=== PATIENT | female | born 1980 | race Caucasian/White ===

== ENCOUNTER 2017-11-28 02:09 | Emergency (ER) | payer MEDICAID ==
[~2017-11-28] VITALS: Ht 165.1 cm; Wt 62.1 kg
[2017-11-28 02:45] VITALS: BP 151/87
[2017-11-28] MEDS ORDERED: Albuterol ud Inhalation HHN ONE (02:45)
[2017-11-28] MEDS ORDERED: GUAIFENESIN-CO118 M1 ORAL (02:47)
[2017-11-28] MEDS ORDERED: ALBUTEROL SULF8.5 GM INH (02:47)
--- NOTE | 2017-11-28 02:48 | Emergency Room Report ---
History of Present Illness General Chief Complaint: Upper Respiratory Illness Source: Patient Present Illness HPI Is a 37-year-old female with history of diabetes. She presents with chief complaint of cough and congestion for last for 5 days. The last 3 days she been complaining of unable to sleep because of the coughing and tightness in her chest. Coughing is productive of phlegm. Subjective fever chills been no nausea or vomiting. No diarrhea. Does have congestion and specks of blood when she blows her nose. Allergies: Coded Allergies: No Known Allergies (Unverified , 11/28/17) Patient History Past Medical History: see triage record, old chart reviewed, DM Past Surgical History: none Pertinent Family History: none Social History: Denies: smoking Now: No Immunizations: other Reviewed Nursing Documentation: PMH: Agreed, PSxH: Agreed Nursing Documentation-PMH Hx Diabetes: Yes Review of Systems Eye: Denies: eye pain, blurred vision ENT: Reports: nose congestion, Denies: ear pain, throat swelling Respiratory: Reports: cough, shortness of breath Cardiovascular: Denies: chest pain, palpitations Gastrointestinal: Denies: abdominal pain, diarrhea, nausea, vomiting Musculoskeletal: Denies: back pain, joint pain Skin: Denies: rash Neurological: Denies: headache, numbness Endocrine: Denies: increased thirst, increased urine Hematologic/Lymphatic: Denies: easy bruising All Other Systems: negative except mentioned in HPI Physical Exam Vital Signs Date Time Temp Pulse Resp B/P (MAP) Pulse Ox O2 Delivery O2 Flow Rate FiO2 11/28/17 02:21 98.1 81 18 151/87 97 Room Air vitals and high blood pressure Sp02 EP Interpretation: reviewed, normal General Appearance: well appearing, no apparent distress, alert Head: normocephalic, atraumatic Eyes: bilateral eye PERRL, bilateral eye EOMI ENT: hearing grossly normal, normal pharynx Neck: full range of motion, supple, no meningismus Respiratory: chest non-tender, lungs clear, normal breath sounds, other - Coughing with inspiration Cardiovascular #1: regular rate, rhythm, no murmur Gastrointestinal: normal bowel sounds, non tender, no mass, no organomegaly, no bruit, non-distended Musculoskeletal: back normal, gait/station normal, normal range of motion Psychiatric: mood/affect normal Skin: warm/dry Medical Decision Making Diagnostic Impression: Primary Impression: Upper respiratory infection Qualified Codes: J06.9 - Acute upper respiratory infection, unspecified ER Course Present with a viral upper respiratory infection. No evidence of pneumonia. No evidence of sepsis or respiratory distress. We'll discharge home. Last Vital Signs Date Time Temp Pulse Resp B/P (MAP) Pulse Ox O2 Delivery O2 Flow Rate FiO2 11/28/17 02:21 98.1 81 18 151/87 97 Room Air Status: improved Disposition: HOME, SELF-CARE Condition: Stable Scripts Guaifenesin/Codeine Phos* (ROBITUSSIN AC*) 118 Ml Liquid 5 ML ORAL Q6H Y for For Cough, #118 ML 0 Refills Prov: ALFRED BOYCE M.D. 11/28/17 Albuterol Sulfate* (ALBUTEROL SULFATE MDI*) 8.5 Gm Hfa.aer.ad 2 PUFF INH Q4H Y for cough/wheezing, #1 EA 0 Refills Prov: ALFRED BOYCE M.D. 11/28/17 Referrals: NON PHYSICIAN (PCP) Patient Instructions: Upper Respiratory Infection, Adult Additional Instructions: Followup with your Dr. in 7 days. Return if symptom worsen. ALFRED BOYCE M.D. Nov 28, 2017 02:48
[2017-11-28 03:11] VITALS: BP 151/87
== END 2017-11-28 03:11 | disposition home or self-care (01) ==
LOC: EMR 02:40
DX: J06.9 Acute upper respiratory infection, unspecified (principal); E11.9 Type 2 diabetes mellitus without complications
CPT/HCPCS: 99283

== ENCOUNTER 2017-12-01 19:38 | Emergency (ER) | payer MEDICAID ==
[~2017-12-01] VITALS: Ht 157.5 cm; Wt 62.1 kg
[~2017-12-01 19:38] MED LIST: ALBUTEROL SULF8.5 GM INH; GUAIFENESIN-CO118 M1 ORAL
[2017-12-01 19:50] VITALS: BP 162/92
[2017-12-01] MEDS ORDERED: Fluorescein Strips LEFT EYE ONE (20:30)
[2017-12-01] MEDS ORDERED: Tetracaine 0.5% Opth 4ml Soln LEFT EYE ONE (20:30)
[2017-12-01] MEDS ORDERED: Excedrin Migraine tab ORAL ONE (21:00)
[2017-12-01] MEDS ORDERED: OCUFLOX5 ML OP (21:46)
[2017-12-01] MEDS ORDERED: EXCEDRIN MIGRA1 EACH PO (21:46)
[2017-12-01] MEDS ORDERED: PATADAY2.5 ML OP (21:46)
[2017-12-01 21:50] VITALS: BP 155/81
[2017-12-01 21:55] VITALS: BP 155/80
--- NOTE | 2017-12-01 23:04 | Emergency Room Report ---
History of Present Illness General Chief Complaint: Eye Problems Source: Patient Present Illness HPI 37-year-old female presents to the emergency department complaining of eye pain x6 days. Patient reports initially having moderate bilateral itchy eyes for which has now progressed to burning sensation, discharge, photophobia and an 8/ 10 in severity headache around the eyes. Denies sudden onset of ZALDIVAR reports progressive. Patient reports history of diabetes. Denies Loss of vision or changes to vision, Floaters, Flashing lights, Diplopia/blurry vision. Pt. denies pain with eye movements. pt. states she took Advil yesterday which helped her headache. pt. reports constant ZALDIVAR which is located frontally and exacerbated with bright lights, also exacerbating burning of the eyes. pt. denies neck stiffness/pain. Fevers, chills or known fb to the eyes. Denies frequency, urgency or dysuria. Allergies: Coded Allergies: No Known Allergies (Unverified , 11/28/17) Patient History Past Medical History: see triage record Past Surgical History: none Pertinent Family History: none Last Menstrual Period: on her period Now: No Reviewed Nursing Documentation: PMH: Agreed, PSxH: Agreed Nursing Documentation-PMH Hx Diabetes: Yes Review of Systems All Other Systems: negative except mentioned in HPI Physical Exam Vital Signs Date Time Temp Pulse Resp B/P (MAP) Pulse Ox O2 Delivery O2 Flow Rate FiO2 12/01/17 19:44 98.1 82 18 162/92 98 Room Air Sp02 EP Interpretation: reviewed, normal General Appearance: no apparent distress, alert, GCS 15, non-toxic Head: normocephalic, atraumatic Eyes: bilateral eye normal inspection, bilateral eye PERRL, bilateral eye EOMI , bilateral eye photophobia, bilateral eye visual acuity - Bilat: 20/20, L:20/30 , and right 20/50., bilateral eye other - bilateral erythema, some medial mucus noted bilaterally. pupils are active and not in a mid-fixed position. Patient had positive pain relief with tetracaine in addition to multiple vertical scratches to the bilateral corneas with increased fluorescein uptake ENT: hearing grossly normal, normal voice Neck: full range of motion Respiratory: lungs clear, normal breath sounds, speaking full sentences Cardiovascular #1: regular rate, rhythm Genitourinary: normal inspection Musculoskeletal: back normal, gait/station normal, normal range of motion, non- tender Neurologic: alert, oriented x3, responsive, motor strength/tone normal, sensory intact, normal gait, speech normal, no pronator, grossly normal Psychiatric: judgement/insight normal Skin: normal color, no rash, warm/dry, well hydrated Medical Decision Making PA Attestation Dr. Samuels is my supervising Physician whom patient management has been discussed with. Diagnostic Impression: Primary Impression: Conjunctivitis Qualified Codes: H10.33 - Unspecified acute conjunctivitis, bilateral Additional Impressions: Headache around the eyes Corneal abrasion of both eyes Qualified Codes: S05.01XA - Injury of conjunctiva and corneal abrasion without foreign body, right eye, initial encounter; S05.02XA - Injury of conjunctiva and corneal abrasion without foreign body, left eye, initial encounter ER Course 37-year-old female presents to the emergency department complaining of eye pain x6 days. Patient reports initially having moderate bilateral itchy eyes for which has now progressed to burning sensation, discharge, photophobia and an 8/ 10 in severity headache around the eyes. Patient reports history of diabetes. Denies Loss of vision or changes to vision, Floaters, Flashing lights, Diplopia/ blurry vision. Pt. denies pain with eye movements. pt. states she took Advil yesterday which helped her headache. pt. reports constant ZALDIVAR which is located frontally and exacerbated with bright lights, also exacerbating burning of the eyes. pt. denies neck stiffness/pain. Fevers, chills or known fb to the eyes. -Denies contact lens use. Ddx considered but are not limited to: corneal abrasion, acute glaucoma, globe rupture, FB, Corneal Ulcer, conjunctivitis. Iridis, orbital cellulitis,keratitis , sinusitis, ZALDIVAR, UTI, migraine, intracranial hemorrhage/aneurysm just to name a few. Vital signs: are WNL, pt. is afebrile H&PE are most consistent with: bacterial conjunctivitis, and associated frontal headache around eyes. -pupils are active and not in a mid-fixed position. Patient had positive pain relief with tetracaine in addition to multiple vertical scratches to the bilateral corneas with increased fluorescein uptake.- Suspect initial allergic/ itching eyes that sustained abrasion from rubbing eyes which then progressed to conjunctivitis. ORDERS: none at this time. ED INTERVENTIONS: -Reglan PO -Excedrin migraine PO re-examination pt. reports full relief of her pain both ZALDIVAR and eye burning. DISCHARGE: At this time pt. is stable for d/c to home. Will provide printed patient care instructions, and any necessary prescriptions. Care plan and follow up instructions have been discussed with the patient prior to discharge. Last Vital Signs Date Time Temp Pulse Resp B/P (MAP) Pulse Ox O2 Delivery O2 Flow Rate FiO2 12/01/17 19:50 98.1 82 18 162/92 98 Room Air Disposition: HOME, SELF-CARE Condition: Stable Scripts Aspirin/Acetaminophen/Caffeine (EXCEDRIN MIGRAINE GELTAB) 1 Each Tablet 1 EACH PO Q6HR, #20 TAB Prov: Pema Layne 12/01/17 Olopatadine Hcl (PATADAY) 2.5 Ml Drops 1 ML OP DAILY, #2.5 ML Prov: Pema Layne 12/01/17 Ofloxacin (OCUFLOX) 5 Ml Drops 2 DROP OP TID for 5 Days, #5 ML Prov: Pema Layne 12/01/17 Patient Instructions: Bacterial Conjunctivitis, Corneal Abrasion, [id number] Additional Instructions: Take medications as directed. Follow up with a Revenue Specialist in 3 days, even if your symptoms have resolved. --Please review list of primary care clinics, if you do not already have a primary care provider Return sooner to ED if new symptoms occur, or current symptoms become worse. - Please note that this Emergency Department Report was dictated using [employer] operator technology software, occasionally this can lead to erroneous entry secondary to interpretation by the dictation equipment. Pema Layne Dec 01, 2017 23:04
== END 2017-12-01 21:55 | disposition home or self-care (01) ==
LOC: EMR 21:24
DX: H10.9 Unspecified conjunctivitis (principal); S05.02XA Injury of conjunctiva and corneal abrasion without foreign body, left eye, initial encounter; S05.01XA Injury of conjunctiva and corneal abrasion without foreign body, right eye, initial encounter; R51 Headache; X58.XXXA Exposure to other specified factors, initial encounter; Y92.9 Unspecified place or not applicable; E11.9 Type 2 diabetes mellitus without complications
CPT/HCPCS: 99284